=== PATIENT | male | born 1950 | race Caucasian/White ===

== ENCOUNTER 2018-10-08 09:25 | Inpatient (IN) | payer MEDICARE ==
[2018-10-08 10:11] LABS: #Eosinphils 0.1 thou/uL (0.0-0.7); #Lymphocytes 0.8 thou/uL (1.20-3.40); #Monocytes 0.6 thou/uL (0.11-0.59); #Neutrophils 3.7 thou/uL (1.40-6.50); %Basophils 0.5 % (0.0-1.0); %Eosinophils 2.4 % (0.0-10.0); %Lymphocytes 14.7 % (21.0-51.0); %Monocytes 11.9 % (0.0-10.0); %Neutrophils 70.6 % (42.0-75.0); Hemoglobin 16.9 g/dL (14.0-18.0); Mean Corpuscular HGB CONC 30.5 g/dL (32.0-36.0); Mean Corpuscular Hemoglobin 26.6 pg (27.0-31.0); Mean Corpuscular Volume 87.1 fL (78.0-98.0); Mean Platelet Volume 9.3 fL (7.4-10.4); Platelet Count 123 thou/uL (130-400); RBC Distribution Width 17.8 % (11.5-14.5); Red Blood Cell (RBC) Count 6.34 mill/uL (4.70-6.10); White Blood Cell (WBC) Count 5.2 thou/uL (4.8-10.8)
[2018-10-08 10:46] LABS: ALT (SGPT) 40 U/L (8-55); AST (SGOT) 47 U/L (5-34); Albumin 3.2 g/dL (3.4-4.8); Alkaline Phosphatase 92 U/L (40-150); Anion Gap 19 mmol/L (10-20); BUN (Urea Nitrogen) 71 mg/dL (8.4-25.7); Bilirubin, Total 2.6 mg/dL (0.2-1.2); Calc. Creatinine Clearance 0 mL/min (70-130); Calcium 8.9 mg/dL (7.8-10.44); Carbon Dioxide 22 mmol/L (23-31); Chloride 94 mmol/L (98-107); Estimated GFR-MDRD 34; Globulin 2.3 g/dL (2.4-3.5); Glucose 61 mg/dL (80-115); Lipase 29 U/L (8-78); Protein, Total 5.5 g/dL (5.8-8.1); Sodium 130 mmol/L (136-145)
--- NOTE | 2018-10-08 12:09 | CT ---
ABDOMEN AND PELVIC CT SCAN WITH IV CONTRAST: Date: 10/08/18 HISTORY: Worsening abdominal pain with intermittent diarrhea, nausea, and shortness of breath. FINDINGS: Bilateral pleural effusions, moderate on the right and small on the left, with some minimal pleural b ased parenchymal changes, slightly nodular, probably subsegmental atelectasis. Old granuloma calcific ations. Marked cardiomegaly with some focal thinning of the wall of the apex of the left ventricle wi th two irregular filling defects within the left ventricle, the largest measuring approximately 2.0 x 5.0 cm in size, most consistent with intraluminal thrombus. I think this is more likely thrombus rat her than a mass since it is hypodense to the wall of the left ventricle. There is anasarca with moder ate ascites throughout the abdomen and pelvis. Liver attenuation is heterogeneous. No evidence for ga llstones or CT evidence for acute cholecystitis. The pancreas and spleen are unremarkable. Old spleni c granulomas. No renal calculi or acute obstruction. Normal appearing appendix. Scattered central mesenteric and retroperitoneal fat stranding. Occasional colon diverticulosis without acute diverticu litis. IMPRESSION: 1. Filling defects within the left ventricle of the heart with associated wall thinning of the left ventricular apex. 2. Bilateral pleural effusions and some pleural based parenchymal changes, worse on the right. 3. Ascites with evidence for anasarca. 4. Heterogeneous liver attenuation. 5. No evidence for other significant acute process in abdomen or pelvis. Findings discussed with Dr. Vang at 1135 hours. CODE CR. POS: TPC
[2018-10-08 12:18] LABS: Troponin I 0.071 ng/mL (< 0.028)
[2018-10-08 12:46] LABS: Bilirubin Small (Negative); Blood, Urine Negative (Negative); Clarity CLEAR (Clear); Glucose, Urine (Dipstick) Negative (Negative); Leukocyte Negative (Negative); Nitrite Negative (Negative); Protein, Urine (Dipstick) 30 mg/dL (Neg-Trace); Specific Gravity, Urine 1.022 (1.002-1.036)
[2018-10-08 12:48] LABS: Bacteria/HPF None Seen HPF (None Seen); Hyaline Casts/LPF 4-6 HYALINE CAST LPF (0-3 Hyaline); Pathc Cast-AUWi Flag 0.81 (0-2.49); Squamous Epithelial None Seen HPF (0-3); WBC/HPF 0-3 HPF (0-3)
[2018-10-08] MEDS ORDERED: Aspirin 325 MG TAB ONE ×2 (12:54→15:18)
--- NOTE | 2018-10-08 12:59 | PDOC.FPRHP ---
- History of Present Illness Chief Complaint: abdominal pain History of Present Illness: 68 yr old male with PMH of DM reports to ER for longstanding hx of abdominal pain. He reports abdominal pain for 3 years mostly controlled with garlic. This has been worked up at his PCP, the results conveyed to him are an increased WBC count present in his stool. He reports this pain has been more intense this past week. He denies vomiting, diarrhea, constipation, or passing blood. He had a heart cath [address] Carvajal in [place] which he reports was bad and not amenable to stents. Medical management was recommended, almost all of which he has discontinued 2/2 stomach upset. He reports recent normal echocardiogram at [place] cardi[place]. He currently denies chest pain, shortness of breath, orthopnea, palpitations, or IRVIN. ED Course: Therapeutic lovenox(1mg/kg) and ASA 325 mg. cardiology was consulted from the ER. CBC, CMP, CT ab - Allergies/Adverse Reactions Allergies Allergy/AdvReac Type Severity Reaction Status Date / Time carvedilol [From Coreg] Allergy Verified 10/08/18 17:58 spironolactone Allergy Verified 10/08/18 17:58 [id number]-[id number] Reductase Allergy Verified 10/08/18 17:58 Inhibitor - History PMHx: DM, HTN (not regularly on meds), eye clot PSHx: inguinal hernia (2004), heart cath 3 years ago FHx: Son- crohns disease. daughter- allergies. Mother- DM, carotid stenosis, heart disease Social: quit smoking 30 years ago, no hx drugs or alcohol. furosemide- 40 mg qd humalog 75/25- 9 units BID - Review of Systems General: reports: weight/appetite/sleep changes ENT: denies: nasal congestion, rhinorrhea Respiratory: denies: cough, congestion, shortness of breath, exercise intolerance Cardiovascular: denies: chest pain, palpitation, paroxysmal nocturnal dyspnea, orthopnea Gastrointestinal: reports: abdominal pain Genitourinary: denies: dysuria, polyuria Skin: denies: rashes, lesions Neurological: denies: numbness, seizure Psychological: denies: anxiety, depression - Vital signs BP: 110/76 HR: 83 RR: 18 Pox: 96% on RA Wt: 72kg - Physical Exam Constitutional: NAD, awake, alert and oriented HEENT: normocephalic and atraumatic, other (dry mm) Neck: trachea midline, no JVD Chest: no-tender to palpation, no lesions Heart: RRR, normal S1/S2, pulses present, other (murmur present, minimal edema) Lungs: good air movement, other (crackles in LLF b/l) Abdomen: soft, bowel sounds present, no masses/distention, other (ttp) Musculoskeletal: normal structure, normal tone Neurological: no focal deficit Skin: no rash/lesions, good turgor Heme/Lymphatic: no unusual bruising or bleeding Psychiatric: other (poor insight) FMR H&P: Results - Labs Result Diagrams: 10/08/18 09:58 10/08/18 09:58 Lab results: WBC 5.2 thou/uL (4.8-10.8) 10/08/18 09:58 Hgb 16.9 g/dL (14.0-18.0) 10/08/18 09:58 Hct 55.2 % (42.0-52.0) H 10/08/18 09:58 MCV 87.1 fL (78.0-98.0) 10/08/18 09:58 Plt Count 123 thou/uL (130-400) L 10/08/18 09:58 Neutrophils % 70.6 % (42.0-75.0) 10/08/18 09:58 Sodium 130 mmol/L (136-145) L 10/08/18 09:58 Potassium 5.0 mmol/L (3.5-5.1) 10/08/18 09:58 Chloride 94 mmol/L (98-107) L 10/08/18 09:58 Carbon Dioxide 22 mmol/L (23-31) L 10/08/18 09:58 BUN 71 mg/dL (8.4-25.7) H 10/08/18 09:58 Creatinine 2.00 mg/dL (0.7-1.3) H 10/08/18 09:58 Glucose 61 mg/dL (80-115) L 10/08/18 09:58 Calcium 8.9 mg/dL (7.8-10.44) 10/08/18 09:58 Total Bilirubin 2.6 mg/dL (0.2-1.2) H 10/08/18 09:58 AST 47 U/L (5-34) H 10/08/18 09:58 ALT 40 U/L (8-55) 10/08/18 09:58 Alkaline Phosphatase 92 U/L (40-150) 10/08/18 09:58 Serum Total Protein 5.5 g/dL (5.8-8.1) L 10/08/18 09:58 Albumin 3.2 g/dL (3.4-4.8) L 10/08/18 09:58 Lipase 29 U/L (8-78) 10/08/18 09:58 FMR H&P: A/P - Problem List (1) Mural thrombus of cardiac apex Current Visit: Yes Status: Acute Code(s): I51.3 - INTRACARDIAC THROMBOSIS, NOT ELSEWHERE CLASSIFIED (2) Cardiorenal disease Current Visit: Yes Status: Acute Code(s): I13.10 - HYP HRT & CHR KDNY DIS W/ O HRT FAIL, W STG 1-4/UNSP CHR KDNY (3) Hepatic congestion Current Visit: Yes Status: Acute Code(s): K76.1 - CHRONIC PASSIVE CONGESTION OF LIVER (4) CAD (coronary artery disease) Current Visit: Yes Status: Acute Code(s): I25.10 - ATHSCL HEART DISEASE OF [place] CORONARY ARTERY W/O ANG PCTRS (5) HTN (hypertension) Current Visit: Yes Status: Acute Code(s): I10 - ESSENTIAL (PRIMARY) HYPERTENSION (6) DMII (diabetes mellitus, type 2) Current Visit: Yes Status: Acute (7) HFrEF (heart failure with reduced ejection fraction) Current Visit: Yes Status: Acute Code(s): I50.20 - UNSPECIFIED SYSTOLIC ( CONGESTIVE) HEART FAILURE - Plan Mural thrombus - noted incidentally on CT, no symptoms or recent weakness - Cardiology consulted from ED, appreciate recs - s/p therapeutic lovenox and asa in ED, continue - echo pending HFrEF - pleural effusions noted on CT, PE c/w,most likely fluid overloaded w/ 3rd spacing - lasix 40mg IV BID - considering beginning Bblocker and NOBLE-I when stable/bp elevated CAD - aware, request records from skin tanner - plan as above Hepatic congestion - elevated tbili and ast poa - most likely, plan as above - hep c, RUQ US pending Cardiorenal disease - elevated bun/cr poa - most likely, plan as above - urine Na pending HTN - aware, monitor DMII - continue home meds - mild SSI Code: Full ppx: tx lovenox Dispo: admit to tele for anticoagulation and monitoring FMR H&P: Upper Level - Pertinent history 68 yr old male with PMH of HFrEF (not on meds), CAD who presents for abdominal pain for about 3 months. Feels like someone is scraping their finger nails up from epigastric region up. Unbearable at times because can't sleep. Not eating much bc of the pain. Denies orthopnea, PND. Does have progressively worsening swelling. Dr. Carvajal in [place] is his skin tanner. Last A1C 7.4 on 08/2018. Had a cardiac cath with 90% blockage but unable to stent it. - Pertinent findings Gen: lying flat in bed and can speak in full sentences. Heart: RRR, with S4 heart sound. No murmur noted Lungs: BLL crackles, good air movement Abd: RUQ tenderness to deep palpation Psych: poor insight - Plan Date/Time: 10/08/18 Jose I, [Lacie Gomez], have evaluated this patient and agree with findings/plan as outlined by international trade analyst resident. Pertinent changes/additions are listed here. 68 yr old male with PMH of DM who presents for abdominal pain and found to have hypodense lesion in left ventricle that is thought to be a thrombus. LV mural thrombus -large thrombus in setting of severe HFrEF (Most recently estimated at 24%) -will place patient on therapeutic lovenox however given his renal failure, will dose once a day -get ECHO -Dr. Sanderson was consulted from ER and we appreciate recs. MICHELLE on CKD likely worsened by cardiorenal syndrome -significantly elevated BUN/Cr -on 08/30/2018, BUN was in 40s and Cr 1.7 -check urine sodium acute on chronic HFrEF -IV lasix Hyperbilirubinemia -suspect most likely due to hepatic congestion -will check direct bili -check Hep C AB -RUQ sono for ascites eval -check coags Hyponatremia -monitor BMP, asymptomatic other chronic medical conditions managed as documented above PCP: [facility] Code Status: Full DVT ppx: Th lovenox Diet: Dispo: Admit to inpatient Tele and likely will require 2-3 midnight stay Addendum - Attending - Attending Attestation Date/Time: 10/08/182035 I personally evaluated the patient and discussed the management with Drs. Benitez/ Patricia I agree with the History, Examination, Assessment and Plan documented above with any addition or exceptions noted below. 68yo DM with known triple vessel CAD Cath December 2015 non amenable to invasive intervention with known low EF ,HFrEF secondary to ischemic cardiomyopathy. Patient as declined ACID in the past. Echocardiogram reveals left ventricular mural thrombus. Patient fluid overloaded, will diuresis and renal dose lovenox for thrombus.
[2018-10-08] MEDS ORDERED: Aspirin Chewable 81 MG TAB ONE (13:00)
[2018-10-08 13:04] LABS: RBC/HPF None Seen HPF (0-3)
[2018-10-08 13:53] LABS: Troponin I 0.053 ng/mL (< 0.028)
[2018-10-08] MEDS ORDERED: Enoxaparin Sodium 80 MG/0.8 ML SYRINGE ONE (15:18)
[2018-10-08] MEDS ORDERED: Famotidine 20 MG TAB ONE (15:18)
[2018-10-08] MEDS ORDERED: ISOVUE-370 76%-LOCM 1 ML ONE (15:26)
[2018-10-08 17:07] LABS: Troponin I 0.063 ng/mL (< 0.028)
--- NOTE | 2018-10-08 17:19 | CON ---
DATE OF CONSULTATION: 10/08/2018 REASON FOR CONSULTATION: LV thrombus. HISTORY OF PRESENT ILLNESS: Mr. Armendariz is a pleasant 68-year-old white gentleman, who comes to the hospital for abdominal pain. He has been having abdominal pain about 3 years ago, getting worse at times, better at times. He noted that the abdominal pain was getting worse in last month to the point where he decided to come in for further evaluation. He is a patient of Dr. Carvajal in [place]. He is his wire harness design engineer, who follows him for what appears to be ischemic cardiomyopathy. He remembers being told three years ago when he had his heart catheterization that his heart was very weak, and that on the heart catheterization, he had severe blockages and they were not amenable to stenting or to catheter-based interventions. He has been treated medically since this. Today, he comes in for his abdominal pain. A CT of the abdomen is done and he is shown to have anasarca with ascites, and his LV apex seems to be thin and akinetic suggestive of an old ND and has what appears to be a thrombus, so Cardiology is being consulted for this. He did receive a full dose of Lovenox for the LV thrombus. PAST MEDICAL HISTORY: 1. Type 2 diabetes. 2. Hypertension. 3. History of what appears to be an eye hemorrhage. He had laser surgery three years ago, thought to be a little bleeding vessel. He has not had any problems since. He does have some scar tissue that needs to be repaired. 4. Coronary artery disease. 5. Apparently ischemic cardiomyopathy per his report. PAST SURGICAL HISTORY: 1. Inguinal hernia repair. 2. Heart catheterization 3 years ago. FAMILY HISTORY: Crohn disease in his son. Daughter with allergies. Mother with diabetes and peripheral vascular disease and some sort of heart disease, which is unknown to him. SOCIAL HISTORY: Quit smoking when he is 38 years old, none since. No alcohol or drugs. OUTPATIENT MEDICATIONS: 1. Furosemide 40 mg a day; however, he has not been taking this for the last week as he states it makes him have abdominal pain. 2. Humalog 75/25 9 units b.i.d. ALLERGIES: NO KNOWN DRUG ALLERGIES. REVIEW OF SYSTEMS: A 12-point review of systems is done and is all negative unless stated in the history of present illness. PHYSICAL EXAMINATION: VITAL SIGNS: Temperature 97.2, pulse 83, respiratory rate 18, saturating 96% on room air, and blood pressure 110/76. GENERAL: Awake, alert, and oriented x3, in no distress. HEENT: Normocephalic and atraumatic. NECK: Supple. LUNGS: Clear. CARDIOVASCULAR: S1 and S2. There is a grade 2/6 systolic murmur in the left sternal border. ABDOMEN: Soft with positive ascitic wave. EXTREMITIES: 3+ edema. SKIN: Warm and dry. LABORATORY DATA: Laboratory work was reviewed. White count of 5.2, hemoglobin of 16, hematocrit of 52, platelet count of 123. Chemistry with sodium of 130, potassium of 5.0, chloride of 94, carbon dioxide 22, anion gap of 19, BUN of 71, creatinine of 2.0, GFR of 34, glucose of 61, total bilirubin of 2.6, and AST of 47. Troponin is 0.07 and 0.05. BNP was 3043. Albumin of 3.2. UA with 30 protein, trace ketones, small bilirubin, 4-6 hyaline casts, otherwise unremarkable. CT of the abdomen showed what appears to be thinning of the left ventricular apex with a filling defect suggestive of thrombus. There are bilateral pleural effusions and parenchymal changes, worse on the right. There is ascites with anasarca and heterogeneous liver attenuation suggestive of cardiac hepatic disease. No other acute significant issues. ASSESSMENT AND PLAN: 1. Acute on chronic systolic heart failure. 2. Possible left ventricular thrombus. 3. Chronic abdominal pain. 4. Ischemic cardiomyopathy, unknown ejection fraction, but most likely is severely reduced. 5. Anasarca. 6. Acute kidney injury on chronic kidney disease. 7. Cardiac cirrhosis, possibility given elevated bilirubin. We will get INR and his albumin, its lowest was 3.2. PLAN: 1. IV Lasix for diuresis. 2. Full-dose Lovenox for anticoagulation for his possible LV thrombus. We will get an echocardiogram to assess this better. 3. We will agree with primary team to try to get records from [place] wire harness design engineer to see what has already been done. Apparently, from what he told me, he has severe dilated ischemic cardiomyopathy, that is not amenable to any revascularization by catheter-based interventions or bypass surgery. 4. Further recommendations per further studies. 5. We will follow. Job ID: [id number]
[2018-10-08] MEDS ORDERED: Calcium Carbonate 500 MG ChewTAB PO PRN (17:44)
[2018-10-08] MEDS ORDERED: Ondansetron PF 4 MG/2 ML Vial IVP PRN (17:44)
[2018-10-08] MEDS ORDERED: Ondansetron ODT 4 MG TAB PO PRN (17:44)
[2018-10-08] MEDS ORDERED: HumaLOG 300 UNITS/3 ML VIAL SC PRN (17:44)
[2018-10-08] MEDS ORDERED: Acetaminophen 325 MG TAB PO PRN (17:44)
[2018-10-08] MEDS ORDERED: Dextrose 50% Abboject 50 ML SYRINGE SLOW IVP PRN (17:44)
[2018-10-08] MEDS ORDERED: Dextrose 5% in Water 1,000 ML IV PRN (17:44)
[2018-10-08] MEDS ORDERED: Furosemide 40 MG/4 ML VIAL SLOW IVP SCH (18:00)
[2018-10-08] MEDS ORDERED: Sucralfate 1 GM/10 ML UDCUP PO SCH (18:00)
[2018-10-08 18:54] LABS: Hep C IgG Ab Non-Reactive (NonReactive); Hep C Index 0.14 S/CO (0-0.79)
[2018-10-08] MEDS: Sucralfate 1 GM/10 ML UDCUP PO SCH (21:32)
[2018-10-09 05:41] LABS: #Eosinphils 0.1 thou/uL (0.0-0.7); #Lymphocytes 0.4 thou/uL (1.20-3.40); #Monocytes 0.6 thou/uL (0.11-0.59); #Neutrophils 3.2 thou/uL (1.40-6.50); %Eosinophils 2.8 % (0.0-10.0); %Lymphocytes 10.3 % (21.0-51.0); %Monocytes 13.5 % (0.0-10.0); %Neutrophils 73.5 % (42.0-75.0); Hemoglobin 14.7 g/dL (14.0-18.0); Mean Corpuscular HGB CONC 31.5 g/dL (32.0-36.0); Mean Corpuscular Hemoglobin 26.8 pg (27.0-31.0); Mean Corpuscular Volume 85.1 fL (78.0-98.0); Mean Platelet Volume 9.5 fL (7.4-10.4); Platelet Count 113 thou/uL (130-400); RBC Distribution Width 18.2 % (11.5-14.5); Red Blood Cell (RBC) Count 5.48 mill/uL (4.70-6.10); White Blood Cell (WBC) Count 4.3 thou/uL (4.8-10.8)
[2018-10-09 05:42] LABS: ALT (SGPT) 28 U/L (8-55); AST (SGOT) 35 U/L (5-34); Albumin 2.7 g/dL (3.4-4.8); Alkaline Phosphatase 78 U/L (40-150); Anion Gap 16 mmol/L (10-20); BUN (Urea Nitrogen) 64 mg/dL (8.4-25.7); Calc. Creatinine Clearance 41 mL/min (70-130); Calcium 8.4 mg/dL (7.8-10.44); Carbon Dioxide 23 mmol/L (23-31); Chloride 97 mmol/L (98-107); Estimated GFR-MDRD 37; Glucose 113 mg/dL (80-115); Potassium 4.4 mmol/L (3.5-5.1); Protein, Total 4.7 g/dL (5.8-8.1); Sodium 132 mmol/L (136-145)
[2018-10-09] MEDS ORDERED: Furosemide 40 MG/4 ML VIAL SLOW IVP SCH ×2 (06:00)
--- NOTE | 2018-10-09 07:57 | PDOC.FM ---
- Subjective Subjective: Pt reports he did well overnight. He denies chest pain, sob, nausea, vomiting, or diarrhea. He reports improving abdominal pain and states he was able to eat for the first time last night without pain. He denies dizziness or lightheadedness when he gets up to use the bathroom. - Objective MAR Reviewed: Yes Vital Signs & Weight: Vital Signs (12 hours) Temp Pulse Resp BP Pulse Ox 10/09/18 07:35 97.0 F L 76 12 110/75 98 10/09/18 03:43 97.3 F L 78 16 109/72 95 10/08/18 23:49 98.7 F 10/08/18 20:00 95.6 F L 79 16 111/73 98 Weight Weight 70.896 kg I&O: 10/08/18 10/09/18 10/10/18 06:59 06:59 06:59 Intake Total 300 Balance 300 Result Diagrams: 10/09/18 04:48 10/09/18 04:48 Phys Exam - Physical Examination Constitutional: NAD HEENT: moist MMs Neck: supple, full ROM Bilateral crackles in bases Cardiovascular: RRR, no significant murmur Gastrointestinal: soft, non-tender, no distention, positive bowel sounds Musculoskeletal: pulses present, edema present (2+ pitting edema to knee) Neurological: normal sensation, moves all 4 limbs Psychiatric: normal affect, A&O x 3 Skin: cap refill <2 seconds Dx/Plan (1) CAD (coronary artery disease) Code(s): I25.10 - ATHSCL HEART DISEASE OF [place] CORONARY ARTERY W/O ANG PCTRS Status: Acute (2) Cardiorenal disease Code(s): I13.10 - HYP HRT & CHR KDNY DIS W/O HRT FAIL, W STG 1-4/UNSP CHR KDNY Status: Acute (3) DMII (diabetes mellitus, type 2) Status: Acute (4) HFrEF (heart failure with reduced ejection fraction) Code(s): I50.20 - UNSPECIFIED SYSTOLIC (CONGESTIVE) HEART FAILURE Status: Acute (5) HTN (hypertension) Code(s): I10 - ESSENTIAL (PRIMARY) HYPERTENSION Status: Acute (6) Hepatic congestion Code(s): K76.1 - CHRONIC PASSIVE CONGESTION OF LIVER Status: Acute (7) Mural thrombus of cardiac apex Code(s): I51.3 - INTRACARDIAC THROMBOSIS, NOT ELSEWHERE CLASSIFIED Status: Acute - Plan Plan: This is a 68 yo male with a pmh of CAD, HTN, HFrEF Mural cardiac thrombus -Noted on CT -Continue therapeutic lovenox and aspirin -Pending Echo -Cardiology consulted, we will appreciate their recommendations HFrEF -Pleural effusions on CT -IV lasix BID, will likely convert to Oral tomorrow -BB and NOBLE-I when stable CAD -Pending records from flaring machine operator HEpatic congestion -Pending RUQ US -Hep C negative -Pending urine sodium Cardiorenal disease -elevated BUN/Cr poa -Plan as above HTN -Stable DMII -Continue home meds -Mild SSI Addendum - Attending - Attending Attestation Date/Time: 10/09/18 [id number] I personally evaluated the patient and discussed the management with Dr. Mccullough I agree with the History, Examination, Assessment and Plan documented above with any addition or exceptions noted below. Interesting case with HFrEF and hepatic congestion left Ventricular mural thrombus continue lovenox at adjusted renal dose and diuresis . Patient for echocardiogram today. Appreciate recommendations from Cardiology.
--- NOTE | 2018-10-09 09:02 | ULT ---
RIGHT UPPER QUADRANT ULTRASOUND: Date: 10/09/18 INDICATION: Elevated bilirubin. COMPARISON: CT of the abdomen and pelvis dated 10/08/18. FINDINGS: There is small right pleural effusion. There is very mild ascites. Gallbladder is mildly distended wi th a small amount of sludge. There is gallbladder wall thickening measuring up to 3.9 mm. There is re port of a sonographic Alvarez's sign. Common bile duct measures 3.9 mm. Right kidney measures 9.8 cm i n length. No focal hepatic lesion is evident. Visualized aspects of pancreas unremarkable. IMPRESSION: 1. Gallbladder wall thickening with gallbladder sludge and a positive sonographic Alvarez's sign. Rec ommend correlation for acute cholecystitis. If clinically indicated, HIDA scan may be helpful. 2. Mild ascites. 3. Right pleural effusion. POS: BH
[2018-10-09] MEDS: Aspirin 81 mg Enteric Coated Tablet PO SCH (09:45)
[2018-10-09] MEDS: Sucralfate 1 GM/10 ML UDCUP PO SCH ×3 (09:46→21:56)
[2018-10-09] MEDS: Enoxaparin Sodium 80 MG/0.8 ML SYRINGE SC SCH (09:47)
--- NOTE | 2018-10-09 15:14 | PDOC.CTH ---
Cardiology Progress Note - Subjective Abdominal pain improved but still there. breathing is better. He has diuresed and edema has improved. - Objective Vital Signs Temp Pulse Pulse Pulse Resp BP BP 10/09/18 11:35 96.9 F L 82 12 10/09/18 09:45 79 82 110/72 105/72 10/09/18 08:00 10/09/18 07:35 97.0 F L 76 12 10/09/18 03:43 97.3 F L 78 16 BP Pulse Ox 10/09/18 11:35 113/75 97 10/09/18 09:45 10/09/18 08:00 98 10/09/18 07:35 110/75 98 10/09/18 03:43 109/72 95 Weight 156 lb 4.8 oz 10/08/18 10/09/18 10/10/18 06:59 06:59 06:59 Intake Total 300 Balance 300 - Physical Examination General/Neuro: alert & oriented x3, NAD Neck: no JVD present Lungs: CTA, unlabored respirations Heart: RRR Abdomen: NT/ND Extremities: + edema B (1+) - Telemetry Telemetry Rhythm: NSR - Labs Result Diagrams: 10/09/18 04:48 10/09/18 04:48 Troponin/CKMB Troponin I 0.063 ng/mL (< 0.028) H 10/08/18 16:17 - Assessment/Plan 1. Abdominal pain 2. Gallbladder sludge, possible cholecystitis. 3. LV thrombus 4. Severe dilated ischemic CM 5. Acute on chronic systolic heart failure. 6. CAD, non revascularizable CD per pts report. 7. MICHELLE on CKD PLAN: - Echo pending - Continue to diurese. - Creatinine improving. - If surgery is recommended for his gallbladder would wait until volume improved.
[2018-10-09] MEDS: Furosemide 40 MG/4 ML VIAL SLOW IVP SCH (15:20)
[2018-10-09 17:40] VITALS: BMI 23.1
[2018-10-10] MEDS: Furosemide 40 MG/4 ML VIAL SLOW IVP SCH ×2 (06:17→14:42)
--- NOTE | 2018-10-10 06:50 | PDOC.FM ---
- Subjective Subjective: Pt states he was able to get up and walk around yesterday. He denies SOB, dizziness, lightheadedness, or chest pain. He does report an itching on his belly as well as burning on urniation. He states the itching is under his skin. He denies any penile discharge. - Objective MAR Reviewed: Yes Vital Signs & Weight: Vital Signs (12 hours) Temp Pulse Resp BP Pulse Ox 10/10/18 03:42 97.4 F L 83 18 107/72 96 10/09/18 20:00 97.6 F 89 16 111/72 97 Weight Admit Weight 70.896 kg Weight 68.855 kg I&O: 10/08/18 10/09/18 10/10/18 06:59 06:59 06:59 Intake Total 1450 Output Total 1475 Balance -25 Result Diagrams: 10/09/18 04:48 10/10/18 10:09 Phys Exam - Physical Examination Constitutional: NAD HEENT: moist MMs Neck: supple, full ROM Respiratory: no wheezing, clear to auscultation bilateral Improving crackles in bases Cardiovascular: RRR, no significant murmur, no rub Gastrointestinal: soft, non-tender, no distention, positive bowel sounds Musculoskeletal: pulses present 2+ pitting edema to thigh Neurological: moves all 4 limbs Psychiatric: normal affect, A&O x 3 Skin: cap refill <2 seconds Deviation from normal: Pt has slight erythematous rash on abdomen with excoriations Dx/Plan (1) CAD (coronary artery disease) Code(s): I25.10 - ATHSCL HEART DISEASE OF [place] CORONARY ARTERY W/O ANG PCTRS Status: Acute (2) Cardiorenal disease Code(s): I13.10 - HYP HRT & CHR KDNY DIS W/O HRT FAIL, W STG 1-4/UNSP CHR KDNY Status: Acute (3) DMII (diabetes mellitus, type 2) Status: Acute (4) HFrEF (heart failure with reduced ejection fraction) Code(s): I50.20 - UNSPECIFIED SYSTOLIC (CONGESTIVE) HEART FAILURE Status: Acute (5) HTN (hypertension) Code(s): I10 - ESSENTIAL (PRIMARY) HYPERTENSION Status: Acute (6) Hepatic congestion Code(s): K76.1 - CHRONIC PASSIVE CONGESTION OF LIVER Status: Acute (7) Mural thrombus of cardiac apex Code(s): I51.3 - INTRACARDIAC THROMBOSIS, NOT ELSEWHERE CLASSIFIED Status: Acute - Plan Plan: This is a 68 yo male with a pmh of CAD, HTN, HFrEF Mural cardiac thrombus -Noted on CT -Continue therapeutic lovenox and aspirin -Cardiology consulted, we will appreciate their recommendations HFrEF and diastolic dysfunction -EF of 10%, grad 2/3 diastolic dysfunction -Pleural effusions on CT -IV lasix BID, will likely convert to Oral tomorrow -BB, NOBLE-I, and spironolactone when stable -Pt will likely be fitted for life vest with plans for an AICD CAD -Pending records from vessel ordinary seaman HEpatic congestion -Biliary sludge seen on RUQ US, continues denying pain -Hep C negative Cardiorenal disease -elevated BUN/Cr poa -Plan as above HTN -Stable DMII -Continue home meds -Mild SSI Dysuria -Pending UA Addendum - Attending - Attending Attestation Date/Time: 10/10/18 Binh I personally evaluated the patient and discussed the management with I agree with the History, Examination, Assessment and Plan documented above with any addition or exceptions noted below. Patient with good improvement with and response IV furosemide and diuresis no longer experiencing any abdominal pain . Patient with EF 10 % would be candidate for ACID continue lovenox for LV thrombus. Note sonogram liver finding patient does not have clinical signs symptoms of acute GDB.
[2018-10-10 08:09] LABS: Bilirubin Negative (Negative); Blood, Urine Small (Negative); Clarity CLEAR (Clear); Glucose, Urine (Dipstick) Negative (Negative); Leukocyte Negative (Negative); Nitrite Negative (Negative); Protein, Urine (Dipstick) Negative (Neg-Trace); Specific Gravity, Urine 1.013 (1.002-1.036); pH, Urine 5.5 (5.0-9.0)
[2018-10-10 08:11] LABS: Bacteria/HPF None Seen HPF (None Seen); Hyaline Casts/LPF 0-3 HYALINE CAST LPF (0-3 Hyaline); Pathc Cast-AUWi Flag 0.54 (0-2.49); Squamous Epithelial None Seen HPF (0-3); WBC/HPF 0-3 HPF (0-3)
[2018-10-10 08:12] LABS: Urine Culture Reflex No No
[2018-10-10] MEDS: Enoxaparin Sodium 80 MG/0.8 ML SYRINGE SC SCH (09:12)
[2018-10-10] MEDS: Aspirin 81 mg Enteric Coated Tablet PO SCH (09:12)
[2018-10-10] MEDS: Sucralfate 1 GM/10 ML UDCUP PO SCH ×3 (09:16→20:45)
[2018-10-10 10:40] LABS: ALT (SGPT) 27 U/L (8-55); AST (SGOT) 30 U/L (5-34); Alkaline Phosphatase 80 U/L (40-150); Anion Gap 14 mmol/L (10-20); BUN (Urea Nitrogen) 59 mg/dL (8.4-25.7); Bilirubin, Total 2.1 mg/dL (0.2-1.2); Calc. Creatinine Clearance 34 mL/min (70-130); Calcium 8.6 mg/dL (7.8-10.44); Carbon Dioxide 30 mmol/L (23-31); Chloride 93 mmol/L (98-107); Estimated GFR-MDRD 32; Globulin 2.4 g/dL (2.4-3.5); Glucose 213 mg/dL (80-115); Potassium 4.2 mmol/L (3.5-5.1); Protein, Total 5.4 g/dL (5.8-8.1); Sodium 133 mmol/L (136-145)
[2018-10-10] MEDS: HumaLOG 300 UNITS/3 ML VIAL SC PRN ×2 (11:15→17:42)
--- NOTE | 2018-10-10 17:43 | PDOC.CTH ---
Cardiology Progress Note - Subjective His breathing is better. Abdominal pain better. - Objective Vital Signs Temp Pulse Pulse Pulse Resp BP BP 10/10/18 16:46 98.2 F 93 16 10/10/18 13:38 84 85 96/58 L 109/79 10/10/18 11:11 92 16 10/10/18 09:16 10/10/18 07:56 10/10/18 07:00 97.5 F L 86 18 BP Pulse Ox 10/10/18 16:46 106/76 98 10/10/18 13:38 10/10/18 11:11 121/71 96 10/10/18 09:16 94 L 10/10/18 07:56 94 L 10/10/18 07:00 108/75 97 Admit Weight 156 lb 4.8 oz Weight 151 lb 12.8 oz 10/09/18 10/10/18 10/11/18 06:59 06:59 06:59 Intake Total 1450 Output Total 1475 Balance -25 - Physical Examination General/Neuro: alert & oriented x3, NAD Neck: no JVD present Lungs: CTA, unlabored respirations Heart: RRR Abdomen: NT/ND Extremities: + edema B (2+) - Telemetry Telemetry Rhythm: NSR - Labs Result Diagrams: 10/09/18 04:48 10/10/18 10:09 Troponin/CKMB Troponin I 0.063 ng/mL (< 0.028) H 10/08/18 16:17 - Assessment/Plan 1. Abdominal pain 2. Gallbladder sludge, possible cholecystitis. 3. LV thrombus 4. Severe dilated ischemic CM 5. Acute on chronic systolic heart failure. 6. CAD, non revascularizable CAD per pts report. 7. MICHELLE on CKD PLAN: - Continue IV lasix, to PO tomorrow. - Abdominal pain improved with diuresis, likely from ascitis. - Continue full anticoagulation with Lovenox, switch to Eliquis on discharge.
[2018-10-11] MEDS: Furosemide 40 MG/4 ML VIAL SLOW IVP SCH ×2 (05:25→16:37)
[2018-10-11 05:27] LABS: Hemoglobin 15.3 g/dL (14.0-18.0); Platelet Count 115 thou/uL (130-400)
--- NOTE | 2018-10-11 06:12 | PDOC.FM ---
- Subjective Subjective: Pt reports he did well overnight. He did state that he had a dark stool overnight. He has some abdominal pain overnight but denies nausea. He is tolerating PO intake. - Objective MAR Reviewed: Yes Vital Signs & Weight: Vital Signs (12 hours) Temp Pulse Resp BP Pulse Ox 10/11/18 04:00 82 20 102/68 10/11/18 02:08 95 10/10/18 19:54 99 10/10/18 19:51 97.6 F 86 16 107/72 99 Weight Admit Weight 70.896 kg Weight 69.127 kg I&O: 10/09/18 10/10/18 10/11/18 06:59 06:59 06:59 Intake Total 1450 1540 Output Total 1475 1125 Balance -25 415 Result Diagrams: 10/11/18 04:36 10/11/18 04:36 Phys Exam - Physical Examination Constitutional: NAD HEENT: moist MMs Neck: no JVD, supple, full ROM Respiratory: no wheezing, no rales, clear to auscultation bilateral Cardiovascular: RRR, no significant murmur Gastrointestinal: soft, no distention, positive bowel sounds mild tenderness to palpation Musculoskeletal: pulses present 2+ pitting edema to thigh Neurological: normal sensation, moves all 4 limbs Psychiatric: normal affect, A&O x 3 Skin: cap refill <2 seconds Dx/Plan (1) CAD (coronary artery disease) Code(s): I25.10 - ATHSCL HEART DISEASE OF [place] CORONARY ARTERY W/O ANG PCTRS Status: Acute (2) Cardiorenal disease Code(s): I13.10 - HYP HRT & CHR KDNY DIS W/O HRT FAIL, W STG 1-4/UNSP CHR KDNY Status: Acute (3) DMII (diabetes mellitus, type 2) Status: Acute (4) HFrEF (heart failure with reduced ejection fraction) Code(s): I50.20 - UNSPECIFIED SYSTOLIC (CONGESTIVE) HEART FAILURE Status: Acute (5) HTN (hypertension) Code(s): I10 - ESSENTIAL (PRIMARY) HYPERTENSION Status: Acute (6) Hepatic congestion Code(s): K76.1 - CHRONIC PASSIVE CONGESTION OF LIVER Status: Acute (7) Mural thrombus of cardiac apex Code(s): I51.3 - INTRACARDIAC THROMBOSIS, NOT ELSEWHERE CLASSIFIED Status: Acute - Plan Plan: This is a 68 yo male with a pmh of CAD, HTN, HFrEF Mural cardiac thrombus -Noted on CT -Continue therapeutic lovenox and aspirin, will switch to eliquis on discharge -Cardiology consulted, we will appreciate their recommendations HFrEF and diastolic dysfunction -EF of 10%, grad 2/3 diastolic dysfunction -Pleural effusions on CT -BID oral lasix starting today -BB, NOBLE-I, and spironolactone when stable -Pt will likely be fitted for life vest with plans for an AICD CAD -Pending records from medical front desk coordinator HEpatic congestion -Biliary sludge seen on RUQ US, continues denying pain -Hep C negative -Abdomen pain improving Cardiorenal disease -elevated BUN/Cr poa -Plan as above HTN -Stable DMII -Continue home meds -Mild SSI Dysuria -UA not concerning for UTI Dark stools -occult blood test today
[2018-10-11] MEDS: Aspirin 81 mg Enteric Coated Tablet PO SCH (10:18)
[2018-10-11] MEDS: Enoxaparin Sodium 80 MG/0.8 ML SYRINGE SC SCH (10:18)
[2018-10-11] MEDS: Sucralfate 1 GM/10 ML UDCUP PO SCH ×3 (11:06→20:24)
--- NOTE | 2018-10-11 12:13 | PRG ---
DATE OF SERVICE: 10/11/2018 SUBJECTIVE: Mr. Armendariz looks and feels better this morning. His abdominal pain has improved. His abdominal ultrasound showed some gallbladder wall thickening with gallbladder sludge and a positive sonographic Alvarez sign. This is likely consistent with acute cholecystitis and HIDA scan was recommended. However given Mr. Armendariz's extremely poor EF of 10% and a large left ventricular thrombus, I doubt that he would survive such surgery. We have elected to treat him conservatively instead. In the event clinically, he is feeling better and is likely ready for discharge in a day or two. We will also start Eliquis for his left ventricular thrombus. His outlook is extremely poor. Job ID: [id number]
--- NOTE | 2018-10-11 15:56 | PDOC.CTH ---
Cardiology Progress Note - Subjective He is feeling much better. Abdominal pain is almost resolved. 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 - Objective Vital Signs Temp Pulse Resp BP Pulse Ox 10/11/18 10:15 99 10/11/18 08:15 97.5 F L 80 20 110/80 99 10/11/18 06:39 97.5 F L 99 10/11/18 04:00 82 20 102/68 Admit Weight 156 lb 4.8 oz Weight 152 lb 6.4 oz 10/10/18 10/11/18 10/12/18 06:59 06:59 06:59 Intake Total 1450 1540 Output Total 1475 1125 Balance -25 415 - Physical Examination General/Neuro: alert & oriented x3, NAD Neck: no JVD present Lungs: unlabored respirations Heart: RRR Abdomen: NT/ND Extremities: + edema B (1+) - Telemetry Telemetry Rhythm: NSR - Labs Result Diagrams: 10/11/18 04:36 10/11/18 04:36 Troponin/CKMB Troponin I 0.063 ng/mL (< 0.028) H 10/08/18 16:17 - Assessment/Plan 1. Abdominal pain 2. Gallbladder sludge, possible cholecystitis. 3. LV thrombus 4. Severe dilated ischemic CM 5. Acute on chronic systolic heart failure. 6. CAD, non revascularizable CAD. 7. MICHELLE on CKD PLAN: - PO Lasix today at home dose. - Abdominal pain may be from cute cholecystitis. Conservative therapy recommended unless toxic and needs gallbladder out which is not the case at this time. - Continue full anticoagulation with Eliquis. 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
[2018-10-11 17:04] LABS: Hemoglobin 15.3 g/dL (14.0-18.0); Platelet Count 107 thou/uL (130-400)
[2018-10-11] MEDS: Atorvastatin Calcium 40 MG TAB PO SCH (19:37)
[2018-10-11] MEDS: Apixaban 5 MG TAB PO SCH (20:25)
--- NOTE | 2018-10-12 06:30 | PDOC.FM ---
- Subjective Subjective: Pt has some abdominal pain when he eats. He also attributes pain to his eliquis. He states that he thinks he has yulisa based on the appearance of his sputum. He denies SOB, chest pain, palpitation, or nausea/vomiting. - Objective MAR Reviewed: Yes Vital Signs & Weight: Vital Signs (12 hours) Temp Pulse Resp BP Pulse Ox 10/12/18 04:00 98.7 F 85 18 110/79 97 10/12/18 01:35 94 L 10/11/18 19:59 98 10/11/18 19:56 97.7 F 90 14 98/68 98 Weight Admit Weight 70.896 kg Weight 70.443 kg I&O: 10/10/18 10/11/18 10/12/18 06:59 06:59 06:59 Intake Total 1450 1540 200 Output Total 1475 1125 250 Balance -25 415 -50 Result Diagrams: 10/11/18 16:46 10/11/18 16:46 Phys Exam - Physical Examination Constitutional: NAD HEENT: moist MMs Neck: full ROM Respiratory: no wheezing, no rales Cardiovascular: RRR, no significant murmur Gastrointestinal: soft, no distention, positive bowel sounds mild RUQ/ epigastric tenderness Musculoskeletal: no edema, pulses present Neurological: moves all 4 limbs Psychiatric: normal affect, A&O x 3 Skin: cap refill <2 seconds Dx/Plan (1) CAD (coronary artery disease) Code(s): I25.10 - ATHSCL HEART DISEASE OF [place] CORONARY ARTERY W/O ANG PCTRS Status: Acute (2) Cardiorenal disease Code(s): I13.10 - HYP HRT & CHR KDNY DIS W/O HRT FAIL, W STG 1-4/UNSP CHR KDNY Status: Acute (3) DMII (diabetes mellitus, type 2) Status: Acute (4) HFrEF (heart failure with reduced ejection fraction) Code(s): I50.20 - UNSPECIFIED SYSTOLIC (CONGESTIVE) HEART FAILURE Status: Acute (5) HTN (hypertension) Code(s): I10 - ESSENTIAL (PRIMARY) HYPERTENSION Status: Acute (6) Hepatic congestion Code(s): K76.1 - CHRONIC PASSIVE CONGESTION OF LIVER Status: Acute (7) Mural thrombus of cardiac apex Code(s): I51.3 - INTRACARDIAC THROMBOSIS, NOT ELSEWHERE CLASSIFIED Status: Acute - Plan Plan: This is a 68 yo male with a pmh of CAD, HTN, HFrEF Mural cardiac thrombus -Noted on CT -Continue therapeutic lovenox and aspirin, will switch to eliquis on discharge -Cardiology consulted, we will appreciate their recommendations HFrEF and diastolic dysfunction -EF of 10%, grad 2/3 diastolic dysfunction -Pleural effusions on CT -BID oral lasix starting today -BB, NOBEL-I, and spironolactone when stable -Pt will likely be fitted for life vest with plans for an AICD CAD -Pending records from [facility] HEpatic congestion -Biliary sludge seen on RUQ US, continues denying pain -Hep C negative -Abdomen pain improving Cardiorenal disease -elevated BUN/Cr poa -Plan as above HTN -Stable DMII -Continue home meds -Mild SSI Dysuria -UA not concerning for UTI Dark stools -occult blood test today
[2018-10-12 08:28] VITALS: BP 110/77; TEMP 96.7
[2018-10-12] MEDS ORDERED: Furosemide 40 MG TAB PO SCH (09:00)
[2018-10-12] MEDS: Apixaban 5 MG TAB PO SCH (09:50)
[2018-10-12] MEDS: Aspirin 81 mg Enteric Coated Tablet PO SCH (09:50)
[2018-10-12] MEDS: Sucralfate 1 GM/10 ML UDCUP PO SCH (09:54)
--- NOTE | 2018-10-12 12:01 | PRG ---
DATE OF SERVICE: Mr. Armendariz is sitting in bed quietly, in no distress. Mr. Armendariz is anxious to go home and really does not wish any further workup or medication changes. He is still very reluctant to take his Eliquis. We will honor his wishes after a palliative consult, where he can discuss this more fully. Job ID: [id number]
== END 2018-10-12 13:57 | disposition home or self-care (01) | DRG 291 ==
LOC: ERS 09:25 → 2NO 12:33
PROVIDERS: ADMIT Family Medicine; ATTEND Family Medicine
DX: I13.0 Hypertensive heart and chronic kidney disease with heart failure and stage 1 through stage 4 chronic kidney disease, or unspecified chronic kidney disease (principal); I50.23 Acute on chronic systolic (congestive) heart failure; N17.9 Acute kidney failure, unspecified; E87.1 Hypo-osmolality and hyponatremia; R18.8 Other ascites; K81.0 Acute cholecystitis; I51.3 Intracardiac thrombosis, not elsewhere classified; K76.1 Chronic passive congestion of liver; I25.10 Atherosclerotic heart disease of native coronary artery without angina pectoris; E11.22 Type 2 diabetes mellitus with diabetic chronic kidney disease; I42.9 Cardiomyopathy, unspecified; R30.0 Dysuria; Z87.891 Personal history of nicotine dependence; Z88.8 Allergy status to other drugs, medicaments and biological substances; Z79.4 Long term (current) use of insulin; N18.9 Chronic kidney disease, unspecified
CPT/HCPCS: 36415; 36416; 74177; 76705; 80053; 81001; 81003; 81015; 82274; 82565; 83690; 83880; 84484; 85014; 85018; 85025; 85049; 86803; 90471; 90662; 93005; 93306; 93798; 94760; 96372; G0008; J1650; J1940; Q9966